=== PATIENT | male | born 1965 | race Caucasian/White ===

== ENCOUNTER 2017-11-30 11:07 | Inpatient (IN) ==
[2017-11-30] MEDS ORDERED: Aspirin 81 MG TAB.CHEW PO ONE (11:45)
[2017-11-30 12:30] LABS: Basophils # 0.1 K/mcL (0.0-0.2); Basophils % 0.8 %; Eosinophils # 0.2 K/mcL (0.0-0.6); Eosinophils % 3.1 %; Hematocrit 39.3 % (37.5-50.1); Hemoglobin 13.7 g/dL (12.9-16.9); Immature Granulocytes % 0.3 % (0-4); Lymphocytes # 1.1 K/mcL (0.6-4.6); Lymphocytes % 17.2 %; Mean Corpuscular HGB Conc 34.9 g/dL (31.6-35.5); Mean Corpuscular Hemoglobin 30.8 pg (28.0-33.3); Mean Corpuscular Volume 88.3 fL (83.0-100.0); Mean Platelet Volume 9.1 fL (9.4-12.4); Monocytes # 0.4 K/mcL (0.0-1.3); Monocytes % 7.2 %; Neutrophils # 4.3 K/mcL (1.6-8.9); Platelet Count 259 K/mcL (140-400); Red Blood Count 4.45 M/mcL (4.19-5.50); Red Cell Distribution Width 12.8 % (11.5-14.5); Segmented Neutrophils % 71.4 %
[2017-11-30 12:55] LABS: Bilirubin,Urine Negative (Negative); Blood,Urine Negative (Negative); Color,Urine Yellow (Yellow); Glucose,Urine (UA) Normal (Normal); Ketones,Urine Negative (Negative); Leukocyte Esterase,Urine Negative (Negative); Nitrite,Urine Negative (Negative); Protein,Urine Negative (Neg-Trace); Specific Gravity,Urine 1.021 (1.010-1.025); Urobilinogen,Urine Normal (Normal)
[2017-11-30 12:55] LABS: Troponin I < 0.03 ng/mL (< 0.04)
[2017-11-30 12:59] LABS: Bacteria,Urine None Seen per hpf (None-Few); Hyaline Casts,Urine None Seen per lpf (None-Few); Squamous Epithelial Cell,Urine Few per lpf (None-Few); WBC,Urine 0-3 per hpf (0-3)
[2017-11-30 13:00] LABS: Clarity,Urine Cloudy (Clear)
[2017-11-30 13:08] LABS: Thyroid Stimulating Hormone 1.098 mcIU/mL (0.340-5.600)
--- NOTE | 2017-11-30 13:09 | Emergency Department Note ---
Disposition Clinical Impression: Suicidal ideation Chest pain Qualifiers: Chest pain type: unspecified Qualified Code(s): R07.9 - Chest pain, unspecified Disposition: Still a Patient Referrals: Ronan Clark MD [Primary Care Provider] - General Adult HPI - General Chief complaint: ED Psychiatric Symptoms Stated complaint: mulitple complaints Time Seen by Provider: 11/30/17 11:23 Source: patient Limitations: no limitations - History of Present Illness Pain Scale: 0 - Related Data Home Medications Medication Instructions Recorded Confirmed Klonopin 03/19/15 05/15/15 Lexapro 03/19/15 05/15/15 Wellbutrin 05/15/15 05/15/15 Previous Rx's Medication Instructions Recorded Azithromycin [Zithromax] 250 mg PO DAILY #6 tablet 05/15/15 Loratadine [Claritin] 10 mg PO DAILY #30 tablet 06/20/15 Amoxicillin/Clavulanate [Augmentin] 875 mg PO BIDWM #20 tablet 11/20/15 Benzonatate [Tessalon] 200 mg PO TID PRN #30 capsule 11/20/15 Guaifenesin/Pseudoephedrne HCl 1 each PO BID #20 tab.er.12h 11/20/15 [Mucinex D ER 1,200-120 mg Tab] Loratadine [Claritin] 10 mg PO DAILY #30 tablet 11/20/15 Cyclobenzaprine HCl 5 mg PO TID PRN #30 tablet 11/09/16 predniSONE [Prednisone] 40 mg PO DAILY #10 tablet 11/09/16 Allergies Allergy/AdvReac Type Severity Reaction Status Date / Time ciprofloxacin [From Cipro] Allergy Rash Verified 03/19/15 20:50 Past Medical History - Past Medical History Medical history: Reports: COPD, other Surgical history: Reports: other (left knee surgery) Psychiatric history: Reports: anxiety, bipolar, depression, other - Social History Smoking Status: Never smoker Smokeless Tobacco Status: No Alcohol use: Reports: none Drug use: Reports: none Physical Exam - General Limitations: no limitations General appearance: alert, in no apparent distress, anxious Course Vital Signs Temperature 97.7 F 11/30/17 11:09 Pulse Rate 73 11/30/17 11:09 Respiratory Rate 18 11/30/17 11:09 Blood Pressure 136/87 11/30/17 11:09 O2 Sat by Pulse Oximetry 97 05/17/18 11:09 Temperature 97.7 F 11/30/17 11:40 Pulse Rate 73 11/30/17 11:40 Respiratory Rate 18 11/30/17 11:40 Blood Pressure 136/87 11/30/17 11:40 O2 Sat by Pulse Oximetry 97 11/30/17 11:40 Oxygen Delivery Oxygen Delivery Room Air Medical Decision Making - Lab Data Result diagrams: 11/30/17 12:03 Lab Results 11/30/17 11/30/17 11/30/17 Range/Units 12:03 12:03 12:03 WBC 6.1 (4.3-11.1) K/mcL RBC 4.45 (4.19-5.50) M/mcL Hgb 13.7 (12.9-16.9) g/dL Hct 39.3 (37.5-50.1) % MCV 88.3 (83.0-100.0) fL MCH 30.8 (28.0-33.3) pg MCHC 34.9 (31.6-35.5) g/dL RDW 12.8 (11.5-14.5) % Plt Count 259 (140-400) K/mcL MPV 9.1 L (9.4-12.4) fL Immature Gran % 0.3 (0-4) % Seg Neutrophils % 71.4 % Lymphocytes % 17.2 % Monocytes % 7.2 % Eosinophils % 3.1 % Basophils % 0.8 % Neutrophils # 4.3 (1.6-8.9) K/mcL Lymphocytes # 1.1 (0.6-4.6) K/mcL Monocytes # 0.4 (0.0-1.3) K/mcL Eosinophils # 0.2 (0.0-0.6) K/mcL Basophils # 0.1 (0.0-0.2) K/mcL Troponin I < 0.03 (< 0.04) ng/mL TSH 1.098 (0.340-5.600) mcIU/mL Urine Color (Yellow) Urine Clarity (Clear) Urine pH (5.0-8.0) pH Units Ur Specific [place] (1.010-1.025) Urine Protein (Neg-Trace) mg/dL Urine Glucose (UA) (Normal) mg/dL Urine Ketones (Negative) mg/dL Urine Blood (Negative) Urine Nitrite (Negative) Urine Bilirubin (Negative) Urine Urobilinogen (Normal) mg/dL Ur Leukocyte Esterase (Negative) Urine Microscopic RBC (0-3) per hpf Urine Microscopic WBC (0-3) per hpf Ur Squamous Epith Cells (None-Few) per lpf Urine Bacteria (None-Few) per hpf Hyaline Casts (None-Few) per lpf 11/30/17 Range/Units 12:45 WBC (4.3-11.1) K/mcL RBC (4.19-5.50) M/mcL Hgb (12.9-16.9) g/dL Hct (37.5-50.1) % MCV (83.0-100.0) fL MCH (28.0-33.3) pg MCHC (31.6-35.5) g/dL RDW (11.5-14.5) % Plt Count (140-400) K/mcL MPV (9.4-12.4) fL Immature Gran % (0-4) % Seg Neutrophils % % Lymphocytes % % Monocytes % % Eosinophils % % Basophils % % Neutrophils # (1.6-8.9) K/mcL Lymphocytes # (0.6-4.6) K/mcL Monocytes # (0.0-1.3) K/mcL Eosinophils # (0.0-0.6) K/mcL Basophils # (0.0-0.2) K/mcL Troponin I (< 0.04) ng/mL TSH (0.340-5.600) mcIU/mL Urine Color Yellow (Yellow) Urine Clarity Cloudy A (Clear) Urine pH 8.0 (5.0-8.0) pH Units Ur Specific [place] 1.021 (1.010-1.025) Urine Protein Negative (Neg-Trace) mg/dL Urine Glucose (UA) Normal (Normal) mg/dL Urine Ketones Negative (Negative) mg/dL Urine Blood Negative (Negative) Urine Nitrite Negative (Negative) Urine Bilirubin Negative (Negative) Urine Urobilinogen Normal (Normal) mg/dL Ur Leukocyte Esterase Negative (Negative) Urine Microscopic RBC 3-5 H (0-3) per hpf Urine Microscopic WBC 0-3 (0-3) per hpf Ur Squamous Epith Cells Few (None-Few) per lpf Urine Bacteria None Seen (None-Few) per hpf Hyaline Casts None Seen (None-Few) per lpf Attestation Statement - Attestation Attestation: I examined this patient and my medical decision-making was reviewed with the Resident Physician. I agree with the documented findings, disposition and treatment plan as described except to the extent set forth below. 52 year old male presnte to the ED with complaints of chest pain that has been intermittent for the past one week or so. Marcus states that it has been worsening his deprssion and anxiety and alhough he doesnt have a plan set he is suicidal. Patient states that he is chest pain free at this time although he has risk facotrs concerning for ACS. Marcus last nuclear test was 3 years ago. WE will continue with medical clearance but with likely admit to medicine for CP r/o ACS.
[2017-11-30 13:11] LABS: Acetaminophen < 10 mcg/mL (10-20); BUN/Creatinine Ratio 17 (6-26); Blood Urea Nitrogen 13 mg/dL (6-20); Calcium 9.1 mg/dL (8.6-10.3); Carbon Dioxide 26 mEq/L (23-29); Chloride 110 mEq/L (98-107); Glucose 114 mg/dL (70-105); Osmolality,Calculated 297 (280-300); Potassium 4.1 mEq/L (3.5-5.1); Sodium 143 mEq/L (136-145); eGFR For African Americans > 60 (> 60); eGFR For Non-African Americans > 60 (> 60)
[2017-11-30 13:16] LABS: Amphetamine Screen,Urine Negative ng/mL (Cutoff=1000); Barbiturate Screen,Urine Negative ng/mL (Cutoff=200); Benzodiazepines Screen,Urine Negative ng/mL (Cutoff=200); Cannabinoid Screen,Urine Negative ng/mL (Cutoff = 50); Cocaine Screen,Urine Negative ng/mL (Cutoff= 300); Opiate Screen,Urine Negative ng/mL (Cutoff=300); Phencyclidine Screen,Urine Negative ng/mL (Cutoff=25)
[2017-11-30 13:16] LABS: Ethanol < 10 mg/dL (Less than 10); Salicylate < 2.5 mg/dL (15.0-30.0)
--- NOTE | 2017-11-30 14:14 | Emergency Department Note ---
Disposition Clinical Impression: Suicidal ideation Chest pain Qualifiers: Chest pain type: unspecified Qualified Code(s): R07.9 - Chest pain, unspecified Disposition: Admitted As Inpatient Condition: Good Time of Disposition: 14:00 Psych HPI - General Chief Complaint: ED Psychiatric Symptoms Stated Complaint: mulitple complaints Time Seen by Provider: 11/30/17 11:23 Source: patient Mode of arrival: ambulatory Limitations: no limitations Nursing Notes Reviewed: Yes Vital Signs Reviewed: Yes - History of Present Illness HPI Narrative: Patient is a [id number] male who presents to [facility] ED with a chief complaint of chest pain, anxiety, suicidal ideation. States he has had worsening chest pains over the last week. States it is substernal in location but does not radiate anywhere. States he feels at times it may be worse with exertion. However he is usually at work when this happens and states that work stresses him out more. States he has chronic pain and has approached his primary care physician about possible disability, but he always gets turned down. States he is at a point where he feels like he cannot take it anymore and just feels like he wants to "end it all". He admitted to having suicidal ideation for some time now, but has not had any plan. Pt complaint: suicidal ideation, feels depressed, anxiety Onset (ago): day(s) Duration: getting worse History of similar episodes: Yes Alleged intoxication: No Associated Psychiatric Symptoms: suicidal ideation Associated symptoms: Reports: denies other symptoms Traumatic symptoms: denies traumatic injury Treatments prior to arrival: none Self harm or harm to others: admits thoughts of self harm, denies having a plan - Related Data Home Medications Medication Instructions Recorded Confirmed ARIPiprazole [Abilify] 5 mg PO DAILY 11/30/17 11/30/17 Diclofenac Sodium [Voltaren] 50 mg PO BID 11/30/17 11/30/17 Escitalopram [Lexapro] 40 mg PO DAILY 11/30/17 11/30/17 Omeprazole [PriLOSEC] 20 mg PO DAILY 11/30/17 11/30/17 clonazePAM [Klonopin] 1 - 2 mg PO BID 11/30/17 11/30/17 Allergies Allergy/AdvReac Type Severity Reaction Status Date / Time ciprofloxacin [From Cipro] Allergy Rash Verified 03/19/15 20:50 All systems ED: reviewed and negative except as stated. Past Medical History - Past Medical History Attestation: Yes The following information was validated with the patient. Source: patient Medical history: Reports: COPD, other Surgical history: Reports: other (left knee surgery) Psychiatric history: Reports: anxiety, bipolar, depression, other - Social History Smoking Status: Never smoker Smokeless Tobacco Status: No Alcohol use: Reports: none Drug use: Reports: none Physical Exam - General Limitations: no limitations General appearance: alert, in no apparent distress, anxious - Head Head exam: atraumatic, normocephalic, normal inspection - Eye Eye exam: Present: normal appearance, EOMI - ENT ENT exam: normal exam, normal oropharynx, mucous membranes moist - Neck Neck exam: Present: normal inspection, full ROM, trachea midline - Chest Chest inspection: Present: normal inspection, symmetric chest wall rise - Respiratory Respiratory exam: Present: normal lung sounds bilaterally - Cardiovascular Cardiovascular exam: Present: regular rate, normal rhythm, normal heart sounds - Abdominal Exam Abdominal exam: Present: soft, Non-Tender. Absent: tenderness, distention, guarding, rebound, rigidity - Extremities Exam Extremities exam: Present: normal inspection, full ROM. Absent: tenderness, pedal edema - Back Exam Back exam: Present: normal inspection, full ROM. Absent: tenderness - Neurological Exam Neurological exam: Present: alert, oriented X3 - Psychiatric Psychiatric exam: Present: normal affect, normal mood - Skin Skin exam: Present: warm, dry, intact, normal color Course Course Narrative: Patient seen and examined. Multiple complaints including chest pain over the last week, feeling depressed and feeling like he wants to "end it all". Denies having a plan. We will have patient moved from room over to wear a sitter can watch him. We will have psychiatry evaluate him following medical clearance. Cardiopulmonary workup was ordered along with urine analysis and urine drug screen. - Reevaluation(s) Reevaluation #1: Labwork unremarkable. Since his symptoms have been going on for several days now, I do think it is unlikely that this is cardiac in origin. We will contact psychiatry to evaluate patient. Time: 14:21 Reevaluation #2: Psychiatry evaluated the patient and decided to admit him. Time: 16:00 Vital Signs Temperature 97.7 F 11/30/17 11:09 Pulse Rate 73 11/30/17 11:09 Respiratory Rate 18 11/30/17 11:09 Blood Pressure 136/87 11/30/17 11:09 O2 Sat by Pulse Oximetry 97 11/30/17 11:09 Temperature 98.4 F 11/30/17 16:00 Pulse Rate 63 11/30/17 16:00 Respiratory Rate 16 11/30/17 16:00 Blood Pressure 125/79 11/30/17 16:00 O2 Sat by Pulse Oximetry 98 11/30/17 14:54 Oxygen Delivery Oxygen Delivery Room Air Psych - Medical Records Medical records reviewed: Yes I reviewed the patient's medical records. - Lab Data Lab results reviewed: Yes I reviewed the patient's lab results. Result diagrams: 11/30/17 12:03 11/30/17 12:03 Lab Results 11/30/17 11/30/17 11/30/17 Range/Units 12:03 12:03 12:03 WBC 6.1 (4.3-11.1) K/mcL RBC 4.45 (4.19-5.50) M/mcL Hgb 13.7 (12.9-16.9) g/dL Hct 39.3 (37.5-50.1) % MCV 88.3 (83.0-100.0) fL MCH 30.8 (28.0-33.3) pg MCHC 34.9 (31.6-35.5) g/dL RDW 12.8 (11.5-14.5) % Plt Count 259 (140-400) K/mcL MPV 9.1 L (9.4-12.4) fL Immature Gran % 0.3 (0-4) % Seg Neutrophils % 71.4 % Lymphocytes % 17.2 % Monocytes % 7.2 % Eosinophils % 3.1 % Basophils % 0.8 % Neutrophils # 4.3 (1.6-8.9) K/mcL Lymphocytes # 1.1 (0.6-4.6) K/mcL Monocytes # 0.4 (0.0-1.3) K/mcL Eosinophils # 0.2 (0.0-0.6) K/mcL Basophils # 0.1 (0.0-0.2) K/mcL Sodium 143 (136-145) mEq/L Potassium 4.1 (3.5-5.1) mEq/L Chloride 110 H (98-107) mEq/L Carbon Dioxide 26 (23-29) mEq/L BUN 13 (6-20) mg/dL Creatinine 0.75 (0.70-1.30) mg/dL Est GFR ( Amer) > 60 (> 60) Est GFR (Non-Af Amer) > 60 (> 60) BUN/Creatinine Ratio 17 (6-26) Glucose 114 H (70-105) mg/dL Calculated Osmolality 297 (280-300) Calcium 9.1 (8.6-10.3) mg/dL Troponin I < 0.03 (< 0.04) ng/mL TSH 1.098 (0.340-5.600) mcIU/mL Urine Color (Yellow) Urine Clarity (Clear) Urine pH (5.0-8.0) pH Units Ur Specific [place] (1.010-1.025) Urine Protein (Neg-Trace) mg/dL Urine Glucose (UA) (Normal) mg/dL Urine Ketones (Negative) mg/dL Urine Blood (Negative) Urine Nitrite (Negative) Urine Bilirubin (Negative) Urine Urobilinogen (Normal) mg/dL Ur Leukocyte Esterase (Negative) Urine Microscopic RBC (0-3) per hpf Urine Microscopic WBC (0-3) per hpf Ur Squamous Epith Cells (None-Few) per lpf Urine Bacteria (None-Few) per hpf Hyaline Casts (None-Few) per lpf Salicylates < 2.5 L (15.0-30.0) mg/dL Urine Opiates Screen (Tnsiod=993) ng/mL Acetaminophen < 10 L (10-20) mcg/mL Ur Barbiturates Screen (Cbphup=148) ng/mL Ur Phencyclidine Scrn (Cutoff=25) ng/mL Ur Amphetamines Screen (Xltkpl=1895) ng/mL U Benzodiazepines Scrn ([place]=131) ng/mL Urine Cocaine Screen (Cutoff= 300) ng/mL U Marijuana (THC) Screen (Cutoff = 50) ng/mL Ethyl Alcohol < 10 (Less than 10) mg/dL 11/30/17 11/30/17 Range/Units 12:45 12:45 WBC (4.3-11.1) K/mcL RBC (4.19-5.50) M/mcL Hgb (12.9-16.9) g/dL Hct (37.5-50.1) % MCV (83.0-100.0) fL MCH (28.0-33.3) pg MCHC (31.6-35.5) g/dL RDW (11.5-14.5) % Plt Count (140-400) K/mcL MPV (9.4-12.4) fL Immature Gran % (0-4) % Seg Neutrophils % % Lymphocytes % % Monocytes % % Eosinophils % % Basophils % % Neutrophils # (1.6-8.9) K/mcL Lymphocytes # (0.6-4.6) K/mcL Monocytes # (0.0-1.3) K/mcL Eosinophils # (0.0-0.6) K/mcL Basophils # (0.0-0.2) K/mcL Sodium (136-145) mEq/L Potassium (3.5-5.1) mEq/L Chloride (98-107) mEq/L Carbon Dioxide (23-29) mEq/L BUN (6-20) mg/dL Creatinine (0.70-1.30) mg/dL Est GFR ( Amer) (> 60) Est GFR (Non-Af Amer) (> 60) BUN/Creatinine Ratio (6-26) Glucose (70-105) mg/dL Calculated Osmolality (280-300) Calcium (8.6-10.3) mg/dL Troponin I (< 0.04) ng/mL TSH (0.340-5.600) mcIU/mL Urine Color Yellow (Yellow) Urine Clarity Cloudy A (Clear) Urine pH 8.0 (5.0-8.0) pH Units Ur Specific [place] 1.021 (1.010-1.025) Urine Protein Negative (Neg-Trace) mg/dL Urine Glucose (UA) Normal (Normal) mg/dL Urine Ketones Negative (Negative) mg/dL Urine Blood Negative (Negative) Urine Nitrite Negative (Negative) Urine Bilirubin Negative (Negative) Urine Urobilinogen Normal (Normal) mg/dL Ur Leukocyte Esterase Negative (Negative) Urine Microscopic RBC 3-5 H (0-3) per hpf Urine Microscopic WBC 0-3 (0-3) per hpf Ur Squamous Epith Cells Few (None-Few) per lpf Urine Bacteria None Seen (None-Few) per hpf Hyaline Casts None Seen (None-Few) per lpf Salicylates (15.0-30.0) mg/dL Urine Opiates Screen Negative (Wrvhnj=235) ng/mL Acetaminophen (10-20) mcg/mL Ur Barbiturates Screen Negative (Wmcdet=619) ng/mL Ur Phencyclidine Scrn Negative (Cutoff=25) ng/mL Ur Amphetamines Screen Negative (Ddfnba=0435) ng/mL U Benzodiazepines Scrn Negative (Ilnlut=906) ng/mL Urine Cocaine Screen Negative (Cutoff= 300) ng/mL U Marijuana (THC) Screen Negative (Cutoff = 50) ng/mL Ethyl Alcohol (Less than 10) mg/dL - Radiology Data Radiology results reviewed: Yes I reviewed the patient's radiology results. Chest X-Ray 11/30/17 11:45 IMPRESSION: No acute process. D/ / Jeffry iDaz MD / Jeffry Diaz MD Interpreting Provider: Jeffry Diaz MD - EKG Data EKG attestation: Yes I reviewed and interpreted this EKG. EKG results narrative: EKG done at 1154 shows sinus bradycardia with a rate of [address] elevation or depression noted. Left axis deviation. Psychiatric Medical Clearance - Medical Clearance Checklist Does the patient have a NEW psychiatric condition?: No Any abnormalities indicating possible medical illness?: No Any history of medical issues?: Yes Medical History: No Social History Section defined Any abnormal vital signs prior to transfer?: No Current Vitals: Last Vital Signs Temp 98.4 F 11/30/17 16:00 Pulse 63 11/30/17 16:00 Resp 16 11/30/17 16:00 BP 125/79 11/30/17 16:00 Pulse Ox 98 11/30/17 14:54 Is the patient intoxicated or cognitively impaired?: No Psychiatric Lab Panel: Drug Levels and Toxicity 11/30/17 11/30/17 12:03 12:45 Urine Opiates Screen Negative Acetaminophen < 10 L Ur Barbiturates Screen Negative Ur Phencyclidine Scrn Negative Ur Amphetamines Screen Negative U Benzodiazepines Scrn Negative Urine Cocaine Screen Negative U Marijuana (THC) Screen Negative Ethyl Alcohol < 10 Any abnormalities on the physical exam?: No Any abnormal labs?: No Abnormal Labs: Abnormal lab results MPV 9.1 fL (9.4-12.4) L 11/30/17 12:03 Chloride 110 mEq/L (98-107) H 11/30/17 12:03 Glucose 114 mg/dL (70-105) H 11/30/17 12:03 Urine Clarity Cloudy (Clear) A 11/30/17 12:45 Urine Microscopic RBC 3-5 per hpf (0-3) H 11/30/17 12:45 Salicylates < 2.5 mg/dL (15.0-30.0) L 11/30/17 12:03 Acetaminophen < 10 mcg/mL (10-20) L 11/30/17 12:03 Does the patient require durable medical equiptment?: No Is the patient ambulatory?: Yes Is the patient a fall risk?: No Has the patient been medically cleared?: Yes Any acute medical condition require Tx prior to transfer?: No Statement of Medical Clearance: I have evaluated the patient, reviewed diagnostic information, and certify that the patient's medical condition is sufficiently stable that transfer to the psychiatric unit does not pose a significant risk of deterioration.
[2017-11-30] MEDS ORDERED: Haloperidol Lactate 5 MG/ML VIAL IM PRN (15:46)
[2017-11-30] MEDS ORDERED: *HR* LORazepam 1 MG TABLET PO PRN (15:46)
[2017-11-30] MEDS ORDERED: hydrOXYzine pamoate 25 MG CAPSULE PO PRN (15:46)
[2017-11-30] MEDS ORDERED: *HR* LORazepam 2 MG/ML VIAL IM PRN (15:46)
[2017-11-30] MEDS ORDERED: Mag Hydrox/Al Hydrox/Simeth 30 ML UDC PO PRN (15:46)
[2017-11-30] MEDS ORDERED: MOM Conc 10 ML UD.LIQ PO PRN (15:46)
[2017-11-30] MEDS ORDERED: ARIPiprazole 5 MG TABLET PO ONE (16:15)
[2017-11-30] MEDS: clonazePAM 1 MG TABLET PO SCH ×2 (16:24→20:39)
[2017-11-30] MEDS: traZODone 50 MG TABLET PO PRN (20:39)
[2017-12-01] MEDS: clonazePAM 1 MG TABLET PO SCH ×4 (09:56→21:08)
[2017-12-01] MEDS: ARIPiprazole 10 MG TABLET PO SCH (09:58)
[2017-12-01 14:39] LABS: Basophils # 0.1 K/mcL (0.0-0.2); Basophils % 1.1 %; Eosinophils # 0.6 K/mcL (0.0-0.6); Eosinophils % 10.3 %; Hemoglobin 13.9 g/dL (12.9-16.9); Immature Granulocytes % 0.2 % (0-4); Immature Platelets 1.8 % (1.1-6.1); Lymphocytes # 1.2 K/mcL (0.6-4.6); Lymphocytes % 20.4 %; Mean Corpuscular HGB Conc 34.8 g/dL (31.6-35.5); Mean Corpuscular Hemoglobin 31.5 pg (28.0-33.3); Mean Corpuscular Volume 90.7 fL (83.0-100.0); Monocytes # 0.6 K/mcL (0.0-1.3); Monocytes % 10.3 %; Neutrophils # 3.3 K/mcL (1.6-8.9); Nucleated Red Blood Cells 0.4 /100 WBC (0); Platelet Count 281 K/mcL (140-400); Red Blood Count 4.41 M/mcL (4.19-5.50); Segmented Neutrophils % 57.7 %
[2017-12-01 15:04] LABS: Alanine Aminotransferase 15 Units/L (7-52); Albumin 4.1 g/dL (3.5-5.7); Albumin/Globulin Ratio 1.6 (1.1-2.2); Alkaline Phosphatase 47 Units/L (34-104); Aspartate Amino Transferase 16 Units/L (13-39); BUN/Creatinine Ratio 18 (6-26); Bilirubin,Total 0.4 mg/dL (0.3-1.0); Blood Urea Nitrogen 15 mg/dL (6-20); Calcium 9.1 mg/dL (8.6-10.3); Carbon Dioxide 31 mEq/L (23-29); Chloride 109 mEq/L (98-107); Globulin 2.5 g/dL (2.4-3.5); Glucose 85 mg/dL (70-105); Osmolality,Calculated 296 (280-300); Potassium 4.4 mEq/L (3.5-5.1); Sodium 143 mEq/L (136-145); Total Protein 6.6 g/dL (6.4-8.9); eGFR For African Americans > 60 (> 60); eGFR For Non-African Americans > 60 (> 60)
--- NOTE | 2017-12-01 18:08 | Psychiatry History & Physical ---
Date of Encounter: 12/01/17 Time of Encounter: 17:30 History of Present Illness Patient Stated Chief Complaint: I just cant take the stresses in my life right now Medicare Admission Attestation: For traditional Medicare patients the provided hospital inpatient services are reasonable and necessary and in the case of services not specified as inpatient -only under 42 CFR 419.22 (n), that they are appropriately provided as inpatient services in accordance 42 CFR 412.3. For Critical Access Hospital the patient may reasonably be expected to be discharged or transferred to a hospital within 96 hours after admission to the Critical Access Hospital. Admitted From: Emergency Dept Plans for Post Hospital Care: Home History of Present Illness: Mr. Patton is a 52 year old male Pt is a 52 yo ,, male, marriedx2, x1 with 5 children (28-14) who presents for depression and anxiety . Pt noted he currently lives in [facility] with his and 4 youngest children. Pt noted recent exacerbation of depression. Pt states he is at a point where he feels like he could not take it anymore and just feels like he wants to "end it all". He admitted to having suicidal ideation for some time now, but has not had any plan. PT noted he that his SI has resolved. Pt denied any side effects to current medications. Pt noted he felt safe and comfortable on the unit. Pt was in agreement with current treatment plan. Pt noted that he is doing alright today. Pt noted he slept not that much last night. Pt noted his appetite is good. Pt rated his depression a 3, on a scale of zero to ten with ten being the worst and zero being none. Pt rate his anxiety a 1, on the same scale. Pt denied any auditory or visual hallucinations. Pt denied any current thoughts to harm himself or anyone else. Pt noted that his mother is alive in an assisted living facility and his father passed from old age. Pt noted that his highest level of education is [employer]. Pt noted he is currently employed at [employer]. Pt denied any inpt psychiatric hospitalizations. Pt denied any previous suicide attemptes. Pt denied any family hx of suicides. PT denied any family mental health hx. No TD noted, AIMS=0 Pt denied any hx of hep C, HIV, Seizures or TBI's MSE: Alert and Oriented x3 Appearance: appropriately groomed dressed in civilian attire Behavior: Polite, friendly, courteous Speech: fluent, normal tone, normal rate Mood: better but I am depression Affect: mood congruent Thought content: no HI noted, no SI noted, no delusions noted Psychosis: none noted, currently does not appear to be responding to internal stimuli. Thought Process: linear logical, goal directed Judgment: fair. Insight: fair. Assessment/Plan 1.Interval hx 2.Continue current medications 3.Review current labs 4.Pt had an opportunity to ask questions and discuss current treatment plan. 5.Supportive therapy was provided 6.Pt encouraged to consider group or individual therapy 7.Pt was in agreement with treatment plan. 8.Pt was educated on the risks benefits and side effects of current medications. Past Med Surg Social Fam HX - Past Medical History Medical history: COPD, other - Past Psychiatric History Psychiatric history: Reports: anxiety, depression Family psychiatric history: Unknown Family History of Suicide: Unknown - Past Surgical History Surgical History: other (left knee surgery) - Social History Smoking Status: Never smoker Smokeless Tobacco Status: No Alcohol use: none Drug use: none Medications & Allergies ARIPiprazole [Abilify] 5 mg PO DAILY 11/30/17 [History] Diclofenac Sodium [Voltaren] 50 mg PO BID 11/30/17 [History] Escitalopram [Lexapro] 40 mg PO DAILY 11/30/17 [History] Omeprazole [PriLOSEC] 20 mg PO DAILY 11/30/17 [History] clonazePAM [Klonopin] 1 - 2 mg PO BID 11/30/17 [History] 3 Allergy/AdvReac Type Severity Reaction Status Date / Time ciprofloxacin [From Cipro] Allergy Rash Verified 03/19/15 20:50 Review of Systems Constitutional: Denies: fever, chills, weakness, weight change Eyes: Denies: eye pain, vision change Ears, Nose, Throat: Denies: ear pain, throat pain, dental pain, hearing loss, congestion Cardiovascular: Denies: chest pain, palpitations, dyspnea on exertion Respiratory: Denies: cough, dyspnea, wheezes Gastrointestinal: Denies: abdominal pain, nausea, vomiting, diarrhea, constipation Genitourinary male: Denies: urgency, dysuria, frequency, genital lesions Musculoskeletal: Denies: joint swelling, joint pain Integumentary: Denies: rash, lesions, pruritus Neurological: Denies: headache, weakness, numbness, memory loss Psychiatric: Reports: depression, anxiety, anhedonia Endocrine: Denies: fatigue, heat or cold intolerance Hematologic/Lymphatic: Denies: easy bruising, lymphadenopathy Allergic/Immunologic: Denies: urticaria, itchy eyes Exam - HEENT Head exam IM: Present: atraumatic Eye exam IM: Present: EOMI, normal appearance, PERRL ENT exam IM: Present: normal exam - Neurological Neurological exam: Present: CN II-XII intact - Respiratory Respiratory exam IM: Present: CTAB - GI/Abdominal GI/Abdominal exam IM: Present: normal bowel sounds, soft. Absent: tenderness - Extremities Extremities exam IM: Present: full ROM - Skin Skin exam IM: Present: dry, warm - Constitutional Vitals: Temp Pulse Resp BP Pulse Ox 98 F 55 16 134/79 98 12/01/17 09:00 12/01/17 13:15 12/01/17 13:15 12/01/17 13:15 11/30/17 14:54 General appearance: age & developmentally appropriate, well-groomed, well- nourished - Musculoskeletal Gait: normal Station: relaxed Strength & Tone: normal for patient - Psychiatric Patient Orientation: Yes Person, Yes Time, Yes Place Level of alertness: Alert Behavior: calm, cooperative Psychomotor activity: Normal Eye Contact: Maintains Eye Contact Mood Description: Euthymic/stable Affect description: congruent with mood, full range Speech Volume: Normal Speech pattern: normal rate, normal rhythm, normal tone, fluent, spontaneous Language & Vocabulary: consistent with education Thought Process: Logical, Linear, Goal Oriented Thought Content: Yes Intact, No Suicidal ideation, No Homicidal ideation, No Overt delusions Perceptual Disturbances: No Auditory hallucinations, No Visual hallucinations Attention Span Ability: Capable of Focused Attention Memory Description: Grossly Intact Patient Reliability: Reliable Historian Fund of knowledge: Yes abstraction ability, Yes average, Yes aware of current events Intelligence Estimate: Average Judgment: Fair Insight: Partial Results - Labs Labs: Laboratory Last Values WBC 5.7 K/mcL (4.3-11.1) 12/01/17 14:26 RBC 4.41 M/mcL (4.19-5.50) 12/01/17 14:26 Hgb 13.9 g/dL (12.9-16.9) 12/01/17 14:26 Hct 40.0 % (37.5-50.1) 12/01/17 14: MCV 90.7 fL (83.0-100.0) 12/01/17 14: MCH 31.5 pg (28.0-33.3) 12/01/17 14: MCHC 34.8 g/dL (31.6-35.5) 12/01/17 14: RDW 13.0 % (11.5-14.5) 12/01/17 14: Plt Count 281 K/mcL (140-400) 12/01/17 14: MPV 9.0 fL (9.4-12.4) L 12/01/17 14: Immature Gran % 0.2 % (0-4) 12/01/17 14: Seg Neutrophils % 57.7 % 12/01/17 14: Lymphocytes % 20.4 % 12/01/17 14: Monocytes % 10.3 % 12/01/17 14: Eosinophils % 10.3 % 12/01/17 14: Basophils % 1.1 % 12/01/17 14: Neutrophils # 3.3 K/mcL (1.6-8.9) 12/01/17 14: Lymphocytes # 1.2 K/mcL (0.6-4.6) 12/01/17 14: Monocytes # 0.6 K/mcL (0.0-1.3) 12/01/17 14: Eosinophils # 0.6 K/mcL (0.0-0.6) 12/01/17 14: Basophils # 0.1 K/mcL (0.0-0.2) 12/01/17 14:26 Nucleated RBCs/100 WBC 0.4 /100 WBC (0) H 12/01/17 14:26 Immature Plt Fraction 1.8 % (1.1-6.1) 12/01/17 14:26 Sodium 143 mEq/L (136-145) 12/01/17 14: Potassium 4.4 mEq/L (3.5-5.1) 12/01/17 14: Chloride 109 mEq/L (98-107) H 12/01/17 14:26 Carbon Dioxide 31 mEq/L (23-29) H 12/01/17 14:26 BUN 15 mg/dL (6-20) 12/01/17 14:26 Creatinine 0.84 mg/dL (0.70-1.30) 12/01/17 14:26 Est GFR ( Amer) > 60 (> 60) 12/01/17 14:26 Est GFR (Non-Af Amer) > 60 (> 60) 12/01/17 14:26 BUN/Creatinine Ratio 18 (6-26) 12/01/17 14:26 Glucose 85 mg/dL (70-105) 12/01/17 14:26 Calculated Osmolality 296 (280-300) 12/01/17 14:26 Calcium 9.1 mg/dL (8.6-10.3) 12/01/17 14:26 Magnesium 2.2 mg/dL (1.6-2.6) 12/01/17 14:26 Total Bilirubin 0.4 mg/dL (0.3-1.0) 12/01/17 14:26 AST 16 Units/L (13-39) 12/01/17 14:26 ALT 15 Units/L (7-52) 12/01/17 14:26 Alkaline Phosphatase 47 Units/L (34-104) 12/01/17 14:26 Troponin I < 0.03 ng/mL (< 0.04) 11/30/17 12:03 Serum Total Protein 6.6 g/dL (6.4-8.9) 12/01/17 14:26 Albumin 4.1 g/dL (3.5-5.7) 12/01/17 14:26 Globulin 2.5 g/dL (2.4-3.5) 12/01/17 14:26 Albumin/Globulin Ratio 1.6 (1.1-2.2) 12/01/17 14:26 Vitamin B12 707 pg/mL (250-1100) 12/01/17 14:26 Folate > 22.3 ng/mL (3.0-16.0) H 12/01/17 14:26 TSH 0.784 mcIU/mL (0.340-5.600) 12/01/17 14:26 Urine Color Yellow (Yellow) 11/30/17 12:45 Urine Clarity Cloudy (Clear) A 11/30/17 12:45 Urine pH 8.0 pH Units (5.0-8.0) 11/30/17 12:45 Ur Specific [place] 1.021 (1.010-1.025) 11/30/17 12:45 Urine Protein Negative mg/dL (Neg-Trace) 11/30/17 12:45 Urine Glucose (UA) Normal mg/dL (Normal) 11/30/17 12:45 Urine Ketones Negative mg/dL (Negative) 11/30/17 12:45 Urine Blood Negative (Negative) 11/30/17 12:45 Urine Nitrite Negative (Negative) 11/30/17 12:45 Urine Bilirubin Negative (Negative) 11/30/17 12:45 Urine Urobilinogen Normal mg/dL (Normal) 11/30/17 12:45 Ur Leukocyte Esterase Negative (Negative) 11/30/17 12:45 Urine Microscopic RBC 3-5 per hpf (0-3) H 11/30/17 12:45 Urine Microscopic WBC 0-3 per hpf (0-3) 11/30/17 12:45 Ur Squamous Epith Cells Few per lpf (None-Few) 11/30/17 12:45 Urine Bacteria None Seen per hpf (None-Few) 11/30/17 12:45 Hyaline Casts None Seen per lpf (None-Few) 11/30/17 12:45 Salicylates < 2.5 mg/dL (15.0-30.0) L 11/30/17 12:03 Urine Opiates Screen Negative ng/mL (Kobmbm=321) 11/30/17 12:45 Acetaminophen < 10 mcg/mL (10-20) L 11/30/17 12:03 Ur Barbiturates Screen Negative ng/mL (Xoprlv=129) 11/30/17 12:45 Ur Phencyclidine Scrn Negative ng/mL (Cutoff=25) 11/30/17 12:45 Ur Amphetamines Screen Negative ng/mL (Zgqxuc=8645) 11/30/17 12:45 U Benzodiazepines Scrn Negative ng/mL (Zwrvxy=702) 11/30/17 12:45 Urine Cocaine Screen Negative ng/mL (Cutoff= 300) 11/30/17 12:45 U Marijuana (THC) Screen Negative ng/mL (Cutoff = 50) 11/30/17 12:45 Ethyl Alcohol < 10 mg/dL (Less than 10) 11/30/17 12:03 Assessment and Plan (1) Bipolar 1 disorder, depressed Current visit: Yes Status: Acute Plan: Admit inpatient for safety and stabilization Risks, benefits, side effects, alternatives discussed w/pt: Yes Patient agreeable to treatment: Yes Plans for Post Hospital Care: Home (2) Anxiety Current visit: Yes Status: Acute Plan: Admit inpatient for safety and stabilization Risks, benefits, side effects, alternatives discussed w/pt: Yes Patient agreeable to treatment: Yes Plans for Post Hospital Care: Home (3) Suicidal ideation Current visit: Yes Status: Acute Plan: Admit inpatient for safety and stabilization Risks, benefits, side effects, alternatives discussed w/pt: Yes Patient agreeable to treatment: Yes Plans for Post Hospital Care: Home
[2017-12-01] MEDS: traZODone 50 MG TABLET PO PRN (21:08)
--- NOTE | 2017-12-01 23:20 | Electrocardiograph Report ---
[place] [id number] Test Date: 2017-11-30 Pat Name: Venancio Patton Department: 103 Room: 1A42 Gender: M [employer]: EDIN : 1965 Requested By: Yoko Meza Order Number: [id number] Reading MD: Justa Ndiaye Measurements Intervals [place] Rate: 48 P: 61 IN: 154 QRS: -20 QRSD: 94 T: 66 QT: 433 QTc: 399 Interpretive Statements SINUS BRADYCARDIA MINIMAL ST DEPRESSION [0.025+ mV ST DEPRESSION] Electronically Signed On 12-01-2017 23:18:59 EDT by Justa Ndiaye
[2017-12-02] MEDS: ARIPiprazole 10 MG TABLET PO SCH (09:00)
[2017-12-02] MEDS: clonazePAM 1 MG TABLET PO SCH ×4 (09:00→21:14)
--- NOTE | 2017-12-02 16:09 | Psychiatry Progress Note ---
Date of Encounter: 12/02/17 Time of Encounter: 14:00 Subjective Interval history: Patient with is a 52y/o male, , lives with family with a h/o depression and anxiety admitted to the unit for suicidal ideation in the setting of ongoing stressors. Patient seen on rounds this morning by a multidisciplinary treatment team. There were reported behavioral issues or incident overnight. Patient was calm, cooperative and well related on presentation. He stated recent worsening anxiety symptoms and depressive symptom with passive suicidal ideations. He denied prior suicide attempts and stated he can never see himself do that because of his kids. He endorsed ongoing stressors from both home and work and could no longer handle it. Patient has been on lexopro for years and may be developing tolerance to its effect. He agreed to cross titrate with a different medication. On review of symptoms, he denied any mood or psychotic symptoms inluding Ah/VH/SI/HI. Patient also admitted to noncompliance with his Abilify prior to this hospitalization. I will cross titrate lexapro with Effexor by decreasing dose of lexapro to 20mg and start Effexor ER 37/5mg daily. The risk, complications and side effects of Effexor explained to patient and he verbalized adequate understanding. Review of Systems Constitutional: Denies: fever, chills, weakness, weight change Eyes: Denies: eye pain, vision change Ears, Nose, Throat: Denies: ear pain, throat pain, dental pain, hearing loss, congestion Cardiovascular: Denies: chest pain, palpitations, dyspnea on exertion Respiratory: Denies: cough, dyspnea, wheezes Gastrointestinal: Denies: abdominal pain, nausea, vomiting, diarrhea, constipation Musculoskeletal: Denies: joint swelling, joint pain Neurological: Denies: headache, weakness, numbness, memory loss Psychiatric: Reports: depression, anxiety, anhedonia Results - Vital Signs Vital Signs: Temp Pulse Resp BP Pulse Ox 97.9 F 64 19 115/75 98 12/02/17 09:00 12/02/17 09:00 12/02/17 09:00 12/02/17 09:00 11/30/17 14:54 Assessment and Plan (1) Suicidal ideation Current visit: Yes Status: Acute Plan: Continue hospitalization Risks, benefits, side effects, alternatives discussed w/pt: Yes Patient agreeable to treatment: Yes (2) Bipolar 1 disorder, depressed Current visit: Yes Status: Acute Plan: Continue hospitalization Risks, benefits, side effects, alternatives discussed w/pt: Yes Patient agreeable to treatment: Yes (3) Anxiety Current visit: Yes Status: Acute Plan: Continue hospitalization Risks, benefits, side effects, alternatives discussed w/pt: Yes Patient agreeable to treatment: Yes Consult Discharge Plan - Plan Referrals: [facility] [Outside] - 12/13/17 2:00 pm (The above appointment is with [facility] for outpatient counseling services. You will also see Dr. Alexander on 12/26/2017 at 4:00pm for outpatient psychiatric assessment and medication management services.) Psychiatry Exam - Constitutional Vitals: Temp Pulse Resp BP Pulse Ox 97.9 F 64 19 115/75 98 12/02/17 09:00 12/02/17 09:00 12/02/17 09:00 12/02/17 09:00 11/30/17 14:54 General appearance: age & developmentally appropriate - Musculoskeletal Gait: normal Station: relaxed Strength & Tone: normal for patient - Psychiatric Patient Orientation: Yes Person, Yes Time, Yes Place Level of alertness: Alert Behavior: calm, cooperative Psychomotor activity: Normal Eye Contact: Maintains Eye Contact Mood Description: Depressed Affect description: congruent with mood Speech Volume: Normal Speech pattern: normal rate, normal rhythm, normal tone, fluent, spontaneous Language & Vocabulary: consistent with education Thought Process: Logical, Goal Oriented Thought Content: Yes Suicidal ideation Perceptual Disturbances: No Auditory hallucinations, No Visual hallucinations Attention Span Ability: Capable of Focused Attention Memory Description: Grossly Intact Patient Reliability: Reliable Historian Fund of knowledge: Yes average Intelligence Estimate: Average Judgment: Limited Insight: Minimal
[2017-12-02] MEDS: traZODone 50 MG TABLET PO PRN (21:14)
[2017-12-02] MEDS: Acetaminophen 325 MG TABLET PO PRN (21:45)
--- NOTE | 2017-12-03 00:54 | Internal Medicine Consult Note ---
Date of Encounter: 12/03/17 Time of Encounter: 00:52 - Assessment and plan (1) Chest pain Current Visit: Yes Status: Acute Assessment and plan: The patient's chest pain resolved on its own. EKG is unchanged from previously although his ST depressions a little bit more prominent. He is hemodynamically stable. We will check troponins every 6 hours 3. Given his previous stress test results and the current chest pain with ST depressions, I will check an echocardiogram. Check A1c and lipid panel. I suspect the patient's chest pain is likely secondary to anxiety. Qualifiers: Chest pain type: unspecified Qualified Code(s): R07.9 - Chest pain, unspecified (2) Suicidal ideation Current Visit: Yes Status: Acute Assessment and plan: Management per the primary team. (3) Anxiety Current Visit: Yes Status: Acute Assessment and plan: Patient is to receive 0.5 mg of Ativan per recommendations from the psychiatrist was called by the psych unit. Continue with rest of psych meds per the primary team. - Time Spent With Patient Total time spent is greater than 50% in coordination of care (as documented) at patient's floor/unit and/or counseling patient: Internal Medicine - CN: HPI - Data of Consult Patient: new to practice Consult date: 12/03/17 Requesting Physician: Howie Collins - Consult Narrative Reason for consult: chest pain History of present illness: Mr. Patton is a 52 year old male history of depression, anxiety, suicidal ideations, GERD who is admitted under the psych service for increased anxiety and suicidal ideations. The patient was doing well and working with a psychiatrist however tonight he experienced sudden onset of left-sided chest pain that radiated to the left arm and up to his left jaw. He made his way to nursing station in the psych unit and psychiatrist was called and asked us to evaluate the patient. The patient tells me that his chest pain lasted about 5 minutes and it resolved on its own. He denies any diaphoresis or shortness of breath. He tells me before the episode started he started feeling "butterflies " in his stomach and then the chest pain suddenly started. Was about 4 out of 10 in intensity. He tells me that about 2 years ago he had a stress test done and according to the floor was a negative stress test however they did mention a small sized mild intensity perfusion defect in the apex during the stress and which is mild ischemia could not be ruled out. There was also a comment about possible GI artifact obstructing the inferior wall. He tells me that he did follow-up with a continuous improvement engineer and it was deemed that was mostly GI related. He never followed up with anybody after that. He has a smoking history but has not smoked since 2009. He smoked about a pack a day for about 30 years prior to that. Unknown family history as the patient is adopted. No other cardiac risk factors. The patient actually states that he has been having chest pain on and off for about 2-3 weeks for now. He complained of that to the ED and an EKG was done at that time showed sinus bradycardia with some ST depressions in multiple leads including the 2, V3, V4, V5. His troponins were not elevated on admission. When I was told about the patient I asked for another EKG to be done and this time around that showed similar findings of ST depressions in the same leads although they are more prominent in leads V2, V3, V4, V5. His EKG back from 2014 which we have on record also shows similar findings of ST depressions. The patient also seems to have sinus bradycardia since then. Denies any fever, chills, nausea, vomiting, shortness of breath, blurry vision, headache, diarrhea, constipation, abdominal pain, urinary symptoms, or neurological symptoms. Past Med Surg Social Fam HX - Past Medical History Medical history: COPD, other Psychiatric history: anxiety, depression - Past Surgical History Surgical History: other (left knee surgery) - Social History Smoking Status: Never smoker Packs per day: quit in 2009 Smokeless Tobacco Status: No Alcohol use: none Drug use: none Review of systems: All systems reviewed are negative except for as mentioned above Internal Medicine - CN: Meds ARIPiprazole [Abilify] 5 mg PO DAILY 11/30/17 [History] Diclofenac Sodium [Voltaren] 50 mg PO BID 11/30/17 [History] Escitalopram [Lexapro] 40 mg PO DAILY 11/30/17 [History] Omeprazole [PriLOSEC] 20 mg PO DAILY 11/30/17 [History] clonazePAM [Klonopin] 1 - 2 mg PO BID 11/30/17 [History] 3 Allergy/AdvReac Type Severity Reaction Status Date / Time ciprofloxacin [From Cipro] Allergy Rash Verified 03/19/15 20:50 Internal Medicine - CN: Exam - Constitutional Vitals: Temp Pulse Resp BP Pulse Ox 96.6 F L 67 16 125/75 98 12/02/17 20:18 12/02/17 20:18 12/02/17 20:18 12/02/17 20:18 11/30/17 14:54 Exam: GEN: NAD HEENT: AT, NC, No cyanosis, oral mucosa is moist, No JVD Lymphatics: No lymphadenoapthy Eyes: Extrocular muscles intact, anicteric CVS:RRR. S1, S2, No m/r/g RESP: CTAB ABD: Soft, NT, ND, +BS EXT: No edema, No rashes, 2+ DP NEURO: Nonfocal, CN II-XII intact, No focal motor or sensory deficits Psych: Cooperative, Not anxious or depressed Internal Medicine - CN: Reslt - Labs CBC & Chem 7: 12/01/17 14:26 12/01/17 14:26 Consult Discharge Plan - Plan Referrals: [facility] [Outside] - 12/13/17 2:00 pm (The above appointment is with [facility] for outpatient counseling services. You will also see Dr. Alexander on 12/26/2017 at 4:00pm for outpatient psychiatric assessment and medication management services.)
[2017-12-03] MEDS ORDERED: Aspirin 325 MG TABLET PO ONE (01:15)
[2017-12-03 03:31] LABS: Basophils # 0.1 K/mcL (0.0-0.2); Basophils % 1.2 %; Eosinophils # 0.6 K/mcL (0.0-0.6); Eosinophils % 10.7 %; Hematocrit 37.6 % (37.5-50.1); Hemoglobin 13.2 g/dL (12.9-16.9); Immature Granulocytes % 0.4 % (0-4); Lymphocytes # 1.7 K/mcL (0.6-4.6); Lymphocytes % 29.4 %; Mean Corpuscular HGB Conc 35.1 g/dL (31.6-35.5); Mean Corpuscular Hemoglobin 31.7 pg (28.0-33.3); Mean Corpuscular Volume 90.2 fL (83.0-100.0); Mean Platelet Volume 9.2 fL (9.4-12.4); Monocytes # 0.6 K/mcL (0.0-1.3); Neutrophils # 2.7 K/mcL (1.6-8.9); Platelet Count 222 K/mcL (140-400); Red Blood Count 4.17 M/mcL (4.19-5.50); Red Cell Distribution Width 12.9 % (11.5-14.5); Segmented Neutrophils % 48.3 %
[2017-12-03 03:53] LABS: BUN/Creatinine Ratio 13 (6-26); Blood Urea Nitrogen 9 mg/dL (6-20); Calcium 8.8 mg/dL (8.6-10.3); Carbon Dioxide 28 mEq/L (23-29); Chloride 109 mEq/L (98-107); Chol/HDL Ratio 3.3 (0-4.9); Cholesterol 153 mg/dL (< 200); Glucose 92 mg/dL (70-105); HDL Cholesterol 46 mg/dL (40-59); LDL Cholesterol,Calculated 92 mg/dL (0-99); Magnesium 2.1 mg/dL (1.6-2.6); Osmolality,Calculated 292 (280-300); Sodium 142 mEq/L (136-145); Triglycerides 76 mg/dL (< 150); Troponin I < 0.03 ng/mL (< 0.04); eGFR For African Americans > 60 (> 60); eGFR For Non-African Americans > 60 (> 60)
[2017-12-03] MEDS: ARIPiprazole 10 MG TABLET PO SCH (08:51)
[2017-12-03] MEDS: clonazePAM 1 MG TABLET PO SCH ×4 (08:51→21:27)
[2017-12-03] MEDS ORDERED: Venlafaxine XR (24 HR) 37.5 MG CAP.ER.24H PO SCH ×2 (09:00→12:10)
--- NOTE | 2017-12-03 12:26 | Psychiatry Progress Note ---
Date of Encounter: 12/03/17 Time of Encounter: 09:00 Subjective Interval history: Identifying Data: Patient with is a 52y/o male, , lives with family with a h/o depression and anxiety admitted to the unit for suicidal ideation in the setting of ongoing stressors. Intervlal Hx: Patient was seen by medicine consult last night following complaints of left sided chest pain radiating to the arm and jaw. EKG was done and there were no significant change from the previous on admission except slight ST depression. Chest pain resolved on its own and was diagnosed to be anxiety related. Patient is has been on Klonopin 1mg qid for months and may have developed tolerance to current dose causing recent worsening anxiety related chest pain. This was discussed with patient including the need beak the physical dependence by gradually switching to a longer acting benzodiazepam and evntaully tapering off. He verbalized adequate understanding. Patient is compliant with his medications and denied any side effect. He denied any problems with sleep and appetite. He continues to endorse depressive and anxiety symptoms but denied any suicidal thoughts. On review of symptoms, he denied any mood or psychotic symptoms including Ah/VH/SI/HI. Review of Systems Constitutional: Denies: fever, chills, weakness, weight change Eyes: Denies: eye pain, vision change Ears, Nose, Throat: Denies: ear pain, throat pain, dental pain, hearing loss, congestion Cardiovascular: Denies: chest pain, palpitations, dyspnea on exertion Respiratory: Denies: cough, dyspnea, wheezes Gastrointestinal: Denies: abdominal pain, nausea, vomiting, diarrhea, constipation Musculoskeletal: Denies: joint swelling, joint pain Neurological: Denies: headache, weakness, numbness, memory loss Psychiatric: Reports: depression, anxiety, anhedonia Results - Vital Signs Vital Signs: Temp Pulse Resp BP Pulse Ox 96.6 F L 52 16 119/73 98 12/02/17 20:18 12/03/17 08:26 12/03/17 08:26 12/03/17 08:26 11/30/17 14:54 - Labs Labs: Laboratory Results - last 24 hr 12/03/17 12/03/17 12/03/17 02:12 02:12 07:29 WBC 5.6 RBC 4.17 L Hgb 13.2 Hct 37.6 MCV 90.2 MCH 31.7 MCHC 35.1 RDW 12.9 Plt Count 222 MPV 9.2 L Immature Gran % 0.4 Seg Neutrophils % 48.3 Lymphocytes % 29.4 Monocytes % 10.0 Eosinophils % 10.7 Basophils % 1.2 Neutrophils # 2.7 Lymphocytes # 1.7 Monocytes # 0.6 Eosinophils # 0.6 Basophils # 0.1 Sodium 142 Potassium 4.0 Chloride 109 H Carbon Dioxide 28 BUN 9 Creatinine 0.69 L Est GFR ( Amer) > 60 Est GFR (Non-Af Amer) > 60 BUN/Creatinine Ratio 13 Glucose 92 Calculated Osmolality 292 Calcium 8.8 Magnesium 2.1 Troponin I < 0.03 < 0.03 Triglycerides 76 Cholesterol 153 LDL Cholesterol, Calc 92 VLDL Cholesterol, Calc 15 HDL Cholesterol 46 Cholesterol/HDL Ratio 3.3 Assessment and Plan (1) Suicidal ideation Current visit: Yes Status: Acute Risks, benefits, side effects, alternatives discussed w/pt: Yes Patient agreeable to treatment: Yes (2) Bipolar 1 disorder, depressed Current visit: Yes Status: Acute Risks, benefits, side effects, alternatives discussed w/pt: Yes Patient agreeable to treatment: Yes (3) Anxiety Current visit: Yes Status: Acute Risks, benefits, side effects, alternatives discussed w/pt: Yes Patient agreeable to treatment: Yes Consult Discharge Plan - Plan Referrals: [facility] [Outside] - 12/13/17 2:00 pm (The above appointment is with [facility] for outpatient counseling services. You will also see Dr. Alexander on 12/26/2017 at 4:00pm for outpatient psychiatric assessment and medication management services.) Psychiatry Exam - Constitutional Vitals: Temp Pulse Resp BP Pulse Ox 96.6 F L 52 16 119/73 98 12/02/17 20:18 12/03/17 08:26 12/03/17 08:26 12/03/17 08:26 11/30/17 14:54 General appearance: age & developmentally appropriate - Musculoskeletal Gait: normal Station: other Strength & Tone: normal for patient - Psychiatric Patient Orientation: Yes Person, Yes Time, Yes Place, Yes Circumstance Level of alertness: Alert Behavior: calm, cooperative Psychomotor activity: Normal Eye Contact: Maintains Eye Contact Mood Description: Depressed Affect description: congruent with mood, full range Speech Volume: Normal Speech pattern: normal rate, normal rhythm, normal tone, fluent, spontaneous Language & Vocabulary: consistent with education Thought Process: Linear, Goal Oriented Thought Content: No Suicidal ideation, No Homicidal ideation, No Overt delusions Perceptual Disturbances: No Auditory hallucinations, No Visual hallucinations Attention Span Ability: Capable of Focused Attention Memory Description: Grossly Intact Patient Reliability: Reliable Historian Fund of knowledge: Yes abstraction ability, Yes aware of current events Intelligence Estimate: Average Judgment: Limited Insight: Partial
[2017-12-03 12:44] LABS: Estimated Average Glucose 114 mg/dl; Hemoglobin A1C 5.6 %
[2017-12-03] MEDS: Acetaminophen 325 MG TABLET PO PRN (17:53)
[2017-12-03] MEDS: traZODone 50 MG TABLET PO PRN (21:27)
[2017-12-04] MEDS: ARIPiprazole 10 MG TABLET PO SCH (09:31)
[2017-12-04] MEDS: clonazePAM 1 MG TABLET PO SCH ×3 (11:17→21:18)
--- NOTE | 2017-12-04 14:34 | Electrocardiograph Report ---
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
--- NOTE | 2017-12-04 15:26 | Internal Med Progress Note ---
Date of Encounter: 12/04/17 Time of Encounter: 15:23 - Assessment and plan (1) Chest pain Current Visit: Yes Status: Acute Assessment and plan: Chest pain lasted about 5 minutes and resolved EKG is normal troponin is negative at this point will signed off please feel free to reconsult us if we can be of further assistance Qualifiers: Chest pain type: unspecified Qualified Code(s): R07.9 - Chest pain, unspecified (2) Suicidal ideation Current Visit: Yes Status: Acute Assessment and plan: per psych management (3) Anxiety Current Visit: Yes Status: Acute - Time Spent With Patient Total time spent is greater than 50% in coordination of care (as documented) at patient's floor/unit and/or counseling patient: - Subjective Interval history: Patient with history of depression, anxiety, patient was admitted to psych unit due to increased anxiety and suicidal ideation patient had chest pain yesterday lasted about 5 minutes and resolved was seen by hospitalist in consultation EKG was normal serial troponin was ordered today on reevaluation patient remained chest pain-free troponin all negative - Constitutional Vitals: Temp Pulse Resp BP Pulse Ox 98.2 F 44 16 124/71 98 12/04/17 10:58 12/04/17 10:58 12/04/17 10:58 12/04/17 10:58 11/30/17 14:54 - Eye Eye exam: Present: PERRL, conjuntiva pink, sclera anicteric Pupils: Present: PERRL - Neck Neck exam general surgery: Present: supple, trachea midline. Absent: lymphadenopathy - Respiratory Respiratory exam: Present: CTAB. Absent: accessory muscle use, rales, rhonchi, wheezes - Cardiovascular Cardiovascular exam: Present: RRR, +S1, +S2. Absent: diastolic murmur, gallop, rubs, systolic murmur - GI/Abdominal GI/Abdominal exam: Present: normal bowel sounds, soft, no peritoneal signs. Absent: distended, tenderness - Extremities Exam Extremities exam: Present: warm, radial pulses palpable and symmetrical. Absent : calf tenderness, cyanotic, pedal edema Internal Medicine: Result - Labs CBC & Chem 7: 12/03/17 02:12 12/03/17 02:12 - VTE Reasons for not Prescribing Prophylaxis: Medical contraindication Consult Discharge Plan - Plan Referrals: [facility] [Outside] - 12/13/17 2:00 pm (The above appointment is with [facility] for outpatient counseling services. You will also see Dr. Alexander on 12/26/2017 at 4:00pm for outpatient psychiatric assessment and medication management services.)
--- NOTE | 2017-12-04 15:41 | Psychiatry Progress Note ---
Date of Encounter: 12/04/17 Time of Encounter: 15:30 Subjective Interval history: The patient has had a history of major depression all his never been hospitalized. The patient has a history of generalized anxiety disorder. While he is been treated by his family doctor Dr. Clark. He is also seen Dr. Hilton in [facility]. Dr. Hilton is a psychiatrist who told him that he had major depression and an anxiety disorder. The patient did not want follow-up in that clinic and will follow-up at [place]. He will see Dr. Alexander. Nonetheless the patient's clonazepam was held this morning because of low pulse. The patient had a hospitalist consult in which no cardiac abnormality was noted nonetheless pulse and the 40s was such that clonazepam was held. The patient notes no dizziness unsteadiness or incoordination from the clonazepam. He is tolerated the period of time off Lexapro and is now on 75 mg of venlafaxine. I talked to him about the possibility of increasing the venlafaxine to 150 per day and reducing the clonazepam to 13 times a day. 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 Patient is willing to consider psychotherapy as part of his treatment regimen. Review of Systems Psychiatric: Reports: depression, anxiety, suicidal ideation, anhedonia Results - Vital Signs Vital Signs: Temp Pulse Resp BP Pulse Ox 98.2 F 44 16 124/71 98 12/04/17 10:58 12/04/17 10:58 12/04/17 10:58 12/04/17 10:58 11/30/17 14:54 Assessment and Plan (1) Suicidal ideation Current visit: Yes Status: Acute Plan: Continue hospitalization, Suicide Precautions per unit protocol Risks, benefits, side effects, alternatives discussed w/pt: Yes Patient agreeable to treatment: Yes (2) Bipolar 1 disorder, depressed Current visit: Yes Status: Acute Plan: Continue hospitalization, Close observation Risks, benefits, side effects, alternatives discussed w/pt: Yes Patient agreeable to treatment: Yes (3) Anxiety Current visit: Yes Status: Acute Plan: Continue hospitalization, Close observation, Suicide Precautions per unit protocol Risks, benefits, side effects, alternatives discussed w/pt: Yes Patient agreeable to treatment: Yes Consult Discharge Plan - Plan Referrals: [facility] [Outside] - 12/13/17 2:00 pm (The above appointment is with [facility] for outpatient counseling services. You will also see Dr. Alexander on 12/26/2017 at 4:00pm for outpatient psychiatric assessment and medication management services.) Psychiatry Exam - Constitutional Vitals: Temp Pulse Resp BP Pulse Ox 98.2 F 44 16 124/71 98 12/04/17 10:58 12/04/17 10:58 12/04/17 10:58 12/04/17 10:58 11/30/17 14:54 General appearance: age & developmentally appropriate, well-groomed, well- nourished - Musculoskeletal Gait: normal Station: relaxed Strength & Tone: normal for patient - Psychiatric Patient Orientation: Yes Person, Yes Time, Yes Place Level of alertness: Alert Behavior: calm, anxious Psychomotor activity: Normal Eye Contact: Maintains Eye Contact Mood Description: Depressed, Anxious Affect description: congruent with mood, full range Speech Volume: Normal Speech pattern: normal rate, normal rhythm, normal tone, fluent, spontaneous Language & Vocabulary: consistent with education Thought Process: Linear, Goal Oriented Thought Content: No Suicidal ideation, No Homicidal ideation, No Overt delusions Perceptual Disturbances: No Auditory hallucinations, No Visual hallucinations Attention Span Ability: Capable of Focused Attention Memory Description: Grossly Intact Patient Reliability: Reliable Historian Fund of knowledge: Yes abstraction ability, Yes aware of current events Intelligence Estimate: Average Judgment: Fair Insight: Partial
[2017-12-04] MEDS: Acetaminophen 325 MG TABLET PO PRN (17:18)
[2017-12-04] MEDS: traZODone 50 MG TABLET PO PRN (21:18)
[2017-12-05] MEDS: Acetaminophen 325 MG TABLET PO PRN (06:19)
[2017-12-05] MEDS: ARIPiprazole 10 MG TABLET PO SCH (08:29)
[2017-12-05] MEDS: clonazePAM 1 MG TABLET PO SCH (08:30)
[2017-12-05] MEDS ORDERED: Venlafaxine XR (24 HR) 150 MG CAP.ER.24H PO SCH (09:00)
[2017-12-05 09:18] VITALS: BP 109/76
--- NOTE | 2017-12-05 11:39 | Discharge Summary ---
Date of Encounter: 12/05/17 Time of Encounter: 10:30 Diagnosis - Discharge Diagnosis (1) Suicidal ideation Status: Resolved (2) Bipolar 1 disorder, depressed Status: Acute (3) Anxiety Status: Acute Medications - Discharge Medications Prescriptions: ARIPiprazole [Abilify] 10 mg PO DAILY 30 Days #30 tablet clonazePAM [Klonopin] 1 mg PO TID 30 Days #90 tablet Venlafaxine XR (24 HR) [Effexor Xr] 150 mg PO DAILY 30 Days #30 cap.er.24h Diclofenac Sodium [Voltaren] 50 mg PO BID 11/30/17 [History] Omeprazole [PriLOSEC] 20 mg PO DAILY 11/30/17 [History] ARIPiprazole [Abilify] 10 mg PO DAILY 30 Days #30 tablet 12/05/17 [Rx] Venlafaxine XR (24 HR) [Effexor Xr] 150 mg PO DAILY 30 Days #30 cap.er.24h 12/05 [Rx] clonazePAM [Klonopin] 1 mg PO TID 30 Days #90 tablet 12/05/17 [Rx] 3 Allergy/AdvReac Type Severity Reaction Status Date / Time ciprofloxacin [From Cipro] Allergy Rash Verified 03/19/15 20:50 Results Procedures and tests throughout hospitalization: Completed Lab Orders Category Date Time Status BMP [Basic Metabolic Panel] Stat Lab 12/03/17 02:12 Completed CBC [Complete Blood Count] [HEME] Stat Lab 12/01/17 14:26 Completed CMP [Comprehensive Metabolic Panel] Stat Lab 12/01/17 14:26 Completed Complete Blood Count [HEME] Stat Lab 12/03/17 02:12 Completed Folate Stat Lab 12/01/17 14:26 Completed Hgb A1C Stat Lab 12/03/17 02:12 Completed Lipid Panel Stat Lab 12/03/17 02:12 Completed Magnesium Stat Lab 12/01/17 14:26 Completed Magnesium Stat Lab 12/03/17 02:12 Completed Thyroid [place] Stat Lab 12/01/17 14:26 Completed Troponin I Q6H Lab 12/03/17 07:29 Completed Troponin I Q6H Lab 12/03/17 14:03 Completed Troponin I Stat Lab 12/03/17 02:12 Completed Vitamin B12 Stat Lab 12/01/17 14:26 Completed Provider Date of admission: 11/30/17 15:18 Primary care physician: PCP NONE Consults: 12/03/17 00:01 Consult to Hospitalist [CONS] Stat Consulting Provider: Hospitalist Katt Reason for Consult: Left sided chest pain with heart rate of 44/min Time Notified: 00:02 Call Completed: Yes Discharging clinician: Enzo [place] Psychiatry Exam - Constitutional Vitals: Temp Pulse Resp BP Pulse Ox 97.7 F 61 16 109/76 98 12/04/17 21:00 12/05/17 09:00 12/05/17 09:00 12/05/17 09:00 11/30/17 14:54 Hospital Course Hospital course: Mr. Patton is a 52 year old male During the patient's hospital stay. The patient was transitioned from Lexapro to Effexor. The Effexor was increased to a dose of 150 mg in order to help with generalized anxiety disorder like symptoms. The patient had a diagnosis of bipolar depression but did not evidence significant alexandra. Depression nonetheless improved during this period of time and suicidal ideation resolved. The patient had ahosptalist/cardiology consult. This was due to EKG abnormalities but he was seen initially in an follow-up and found to have no evidence of cardiovascular disease. Nonetheless the patient had episodes of low pulse and clonazepam was helpful. Therefore the dose was reduced from a total of 4 mg per day to 3 mg per day patient tolerated the reduction without significant rebound anxiety. The patient plans to follow-up at [place] with Dr. Alexander. Further diagnostic clarification may be helpful as the patient appears to have long- standing episodes of depression and generalized anxiety disorder. In the intervening period of time he had been treated by his family family physician Dr. López. Time spent discussing smoking cessation with patient: 3 to 10 minutes Does patient wish to continue nicotine replacement upon disc: No - Time Spent with Patient Total time spent providing and/or coordinating discharge services: Less than 30 minutes Assessment and Plan - Patient/Caregiver Discharge Instructions Diet: regular diet - Follow up Plan Follow up with: [facility] [Outside] - 12/13/17 2:00 pm (The above appointment is with [facility] for outpatient counseling services. You will also see Dr. Alexander on 12/26/2017 at 4:00pm for outpatient psychiatric assessment and medication management services.) Overall status at discharge: Stable Disposition: Home, Self-Care Quality - Multiple Antipsychotics Patient discharged on 2 or more antipsychotic medications: No Procedures - Procedures Procedures: Medication Management, Crisis Stabilization, Supportive Therapy, Group Therapy, Psychoeducational Therapy
== END 2017-12-05 13:27 | disposition home or self-care (01) | DRG 753 ==
LOC: EMEROO 11:07 → 1ANU 15:18 → SUATTDRO 15:18 → 1ANU 15:28
PROVIDERS: ADMIT General Practice; ATTEND Psychiatry & Neurology Forensic Psychiatry

== ENCOUNTER 2020-01-08 16:10 | Inpatient (IN) ==
[2020-01-08 17:14] LABS: Bilirubin,Urine Negative (Negative); Blood,Urine Negative (Negative); Clarity,Urine Clear (Clear); Color,Urine Light-Yellow (Yellow); Glucose,Urine (UA) Normal (Normal); Ketones,Urine Negative (Negative); Leukocyte Esterase,Urine Negative (Negative); Nitrite,Urine Negative (Negative); Protein,Urine Negative (Neg-Trace); Specific Gravity,Urine 1.015 (1.010-1.025)
[2020-01-08 17:53] LABS: Basophils # 0.1 K/mcL (0.0-0.2); Basophils % 0.9 %; Eosinophils # 0.2 K/mcL (0.0-0.6); Hemoglobin 15.2 g/dL (12.9-16.9); Immature Granulocytes % 0.2 % (0-4); Lymphocytes # 1.6 K/mcL (0.6-4.6); Lymphocytes % 24.1 %; Mean Corpuscular HGB Conc 33.8 g/dL (31.6-35.5); Mean Corpuscular Hemoglobin 30.3 pg (28.0-33.3); Mean Corpuscular Volume 89.6 fL (83.0-100.0); Monocytes # 0.6 K/mcL (0.0-1.3); Platelet Count 242 K/mcL (140-400); Red Blood Count 5.02 M/mcL (4.19-5.50); Red Cell Distribution Width 12.6 % (11.5-14.5); Segmented Neutrophils % 61.8 %; White Blood Count 6.4 K/mcL (4.3-11.1)
[2020-01-08 18:10] LABS: Alanine Aminotransferase 7 Units/L (7-52); Albumin/Globulin Ratio 1.7 (1.1-2.2); Alkaline Phosphatase 56 Units/L (34-104); Aspartate Amino Transferase 12 Units/L (13-39); BUN/Creatinine Ratio 13 (6-26); Bilirubin,Total 0.3 mg/dL (0.3-1.0); Blood Urea Nitrogen 11 mg/dL (6-20); Calcium 8.8 mg/dL (8.6-10.3); Carbon Dioxide 24 mEq/L (23-29); Chloride 107 mEq/L (98-107); Globulin 2.4 g/dL (2.4-3.5); Glucose 92 mg/dL (70-105); Osmolality,Calculated 283 (280-300); Potassium 3.9 mEq/L (3.5-5.1); Sodium 137 mEq/L (136-145); Total Protein 6.4 g/dL (6.4-8.9); Troponin I < 0.03 ng/mL (< 0.04); eGFR For African Americans > 60 (> 60); eGFR For Non-African Americans > 60 (> 60)
[2020-01-09] MEDS ORDERED: Naloxone 0.4 MG/ML INJ IVP PRN (02:45)
[2020-01-09] MEDS ORDERED: 0.9 % Sodium Chloride 1,000 ML IVC ONE (03:59)
[2020-01-09 06:14] LABS: Hematocrit 44.7 % (37.5-50.1); Hemoglobin 14.7 g/dL (12.9-16.9); Mean Corpuscular HGB Conc 32.9 g/dL (31.6-35.5); Mean Corpuscular Hemoglobin 30.4 pg (28.0-33.3); Mean Corpuscular Volume 92.5 fL (83.0-100.0); Mean Platelet Volume 8.8 fL (9.4-12.4); Platelet Count 218 K/mcL (140-400); Red Blood Count 4.83 M/mcL (4.19-5.50); Red Cell Distribution Width 12.8 % (11.5-14.5); White Blood Count 5.5 K/mcL (4.3-11.1)
[2020-01-09 06:56] LABS: BUN/Creatinine Ratio 11 (6-26); Blood Urea Nitrogen 11 mg/dL (6-20); Calcium 8.7 mg/dL (8.6-10.3); Carbon Dioxide 27 mEq/L (23-29); Chloride 108 mEq/L (98-107); Glucose 96 mg/dL (70-105); Magnesium 2.3 mg/dL (1.6-2.6); Osmolality,Calculated 289 (280-300); Phosphorous 4.3 mg/dL (2.7-4.5); Potassium 4.2 mEq/L (3.5-5.1); Sodium 140 mEq/L (136-145); Troponin I < 0.03 ng/mL (< 0.04); eGFR For African Americans > 60 (> 60); eGFR For Non-African Americans > 60 (> 60)
[2020-01-09] MEDS: Loratadine 10 MG TABLET PO SCH (10:48)
[2020-01-09] MEDS: clonazePAM 1 MG TABLET PO SCH ×3 (10:49→21:24)
[2020-01-10] MEDS: clonazePAM 1 MG TABLET PO SCH ×2 (08:04→14:18)
[2020-01-10] MEDS: Loratadine 10 MG TABLET PO SCH (08:04)
[2020-01-10] MEDS ORDERED: Isovue-370 500 ML BOTTLE IVP ONE (10:21)
[2020-01-10 15:35] VITALS: BP 120/78
== END 2020-01-10 19:25 | disposition short-term general hospital (02) | DRG 204 ==
LOC: 3BNU 16:10 → EMEROOARM 16:10 → 3BNU 21:56
PROVIDERS: ADMIT Internal Medicine; ATTEND Internal Medicine

== ENCOUNTER 2020-02-08 18:49 | Observation (INO) ==
[2020-02-08] MEDS ORDERED: Isovue-370 500 ML BOTTLE IVP ONE ×2 (19:08→20:27)
[2020-02-08 19:31] LABS: Basophils # 0.1 K/mcL (0.0-0.2); Basophils % 1.2 %; Eosinophils # 0.2 K/mcL (0.0-0.6); Eosinophils % 2.8 %; Hematocrit 41.6 % (37.5-50.1); Lymphocytes # 1.7 K/mcL (0.6-4.6); Lymphocytes % 29.5 %; Mean Corpuscular HGB Conc 33.7 g/dL (31.6-35.5); Mean Corpuscular Hemoglobin 29.9 pg (28.0-33.3); Mean Corpuscular Volume 88.7 fL (83.0-100.0); Mean Platelet Volume 8.5 fL (9.4-12.4); Monocytes # 0.6 K/mcL (0.0-1.3); Monocytes % 10.3 %; Neutrophils # 3.2 K/mcL (1.6-8.9); Platelet Count 206 K/mcL (140-400); Red Blood Count 4.69 M/mcL (4.19-5.50); Red Cell Distribution Width 12.2 % (11.5-14.5); Segmented Neutrophils % 56.2 %; White Blood Count 5.6 K/mcL (4.3-11.1)
[2020-02-08 19:53] LABS: BUN/Creatinine Ratio 13 (6-26); Blood Urea Nitrogen 10 mg/dL (6-20); Calcium 8.6 mg/dL (8.6-10.3); Carbon Dioxide 20 mEq/L (23-29); Chloride 107 mEq/L (98-107); Glucose 121 mg/dL (70-105); Osmolality,Calculated 282 (280-300); Potassium 3.7 mEq/L (3.5-5.1); Sodium 136 mEq/L (136-145); Troponin I < 0.03 ng/mL (< 0.04); eGFR For African Americans > 60 (> 60); eGFR For Non-African Americans > 60 (> 60)
[2020-02-09 00:05] LABS: Adenovirus Not Detected (Not Detect); Bordetella Pertussis Not Detected (Not Detect); Chlamydophila pneumoniae Not Detected (Not Detect); Coronavirus 229E Not Detected (Not Detect); Coronavirus HKU1 Not Detected (Not Detect); Coronavirus NL63 Not Detected (Not Detect); Coronavirus OC43 Not Detected (Not Detect); Human Metapneumovirus Not Detected (Not Detect); Human Rhinovirus/Enterovirus Not Detected (Not Detect); Influenza A Subtype 2009 H1 Not Detected (Not Detect); Influenza B Not Detected (Not Detect); Mycoplasma pneumoniae Not Detected (Not Detect); Parainfluenza Virus 1 Not Detected (Not Detect); Parainfluenza Virus 2 Not Detected (Not Detect); Parainfluenza Virus 3 Not Detected (Not Detect); Parainfluenza Virus 4 Not Detected (Not Detect); Respiratory Syncytial Virus Not Detected (Not Detect)
[2020-02-09 00:06] LABS: SARS-CoV-2 Not Detected (Not Detect)
[2020-02-09] MEDS ORDERED: Naloxone 0.4 MG/ML INJ IVP PRN (00:58)
[2020-02-09] MEDS ORDERED: Azithromycin 500 MG in D5% in Water 250 ML IVPB SCH (08:00)
[2020-02-09 08:03] LABS: Hemoglobin 14.3 g/dL (12.9-16.9); Mean Corpuscular HGB Conc 33.3 g/dL (31.6-35.5); Mean Corpuscular Hemoglobin 30.1 pg (28.0-33.3); Mean Corpuscular Volume 90.5 fL (83.0-100.0); Mean Platelet Volume 8.5 fL (9.4-12.4); Platelet Count 196 K/mcL (140-400); Red Blood Count 4.75 M/mcL (4.19-5.50); Red Cell Distribution Width 12.3 % (11.5-14.5); White Blood Count 5.2 K/mcL (4.3-11.1)
[2020-02-09 08:26] LABS: BUN/Creatinine Ratio 9 (6-26); Blood Urea Nitrogen 8 mg/dL (6-20); Calcium 8.7 mg/dL (8.6-10.3); Carbon Dioxide 28 mEq/L (23-29); Chloride 107 mEq/L (98-107); Glucose 92 mg/dL (70-105); Osmolality,Calculated 284 (280-300); Potassium 4.2 mEq/L (3.5-5.1); Sodium 138 mEq/L (136-145); eGFR For African Americans > 60 (> 60); eGFR For Non-African Americans > 60 (> 60)
[2020-02-09] MEDS ORDERED: cefTRIAXone 1,000 MG in Water for inj. (sterile) 10 ML IVP SCH (09:00)
[2020-02-09] MEDS ORDERED: Ringers Solution, Lactated 1,000 ML IVC SCH (09:15)
[2020-02-09] MEDS ORDERED: Ondansetron 4 MG/2 ML VIAL ONE (11:50)
[2020-02-09] MEDS ORDERED: *HR* Propofol 200 MG/20 ML VIAL IVP ONE (11:50)
[2020-02-09] MEDS ORDERED: *HR* Succinylcholine 200 MG/10 ML VIAL IVP ONE (11:50)
[2020-02-09] MEDS ORDERED: Lidocaine -MPF 2% 2 ML VIAL ONE (11:50)
[2020-02-09] MEDS: clonazePAM 1 MG TABLET PO SCH ×2 (13:42→21:15)
[2020-02-10] MEDS ORDERED: Ondansetron 4 MG/2 ML VIAL IVP ONE (02:07)
[2020-02-10] MEDS ORDERED: Simethicone 80 MG TAB.CHEW PO ONE (02:10)
[2020-02-10] MEDS ORDERED: Loratadine 10 MG TABLET PO SCH (09:00)
[2020-02-10] MEDS ORDERED: E-Z-HD (BARIUM SULF) SUSPENSION PO ONE (10:28)
[2020-02-10] MEDS ORDERED: E-Z-PAQUE (BARIUM SULF) SUSP 1 BOTTLE PO ONE (10:28)
[2020-02-10] MEDS: clonazePAM 1 MG TABLET PO SCH ×2 (10:43→15:26)
[2020-02-10 15:32] VITALS: BP 106/57
== END 2020-02-10 17:45 | disposition home or self-care (01) ==
LOC: EMEROOARM 18:49 → 3BNU 18:49 → SUATTDRO 02-09 00:13 → 3ANU 02-09 00:22
PROVIDERS: ADMIT Family Medicine; ATTEND Internal Medicine

== ENCOUNTER 2020-04-16 20:14 | Observation (INO) ==
[2020-04-16] MEDS ORDERED: Ondansetron 4 MG/2 ML VIAL IVP ONE (20:24)
[2020-04-16] MEDS ORDERED: 0.9 % Sodium Chloride 1,000 ML IVC ONE (20:24)
[2020-04-16 20:42] LABS: Basophils # 0.1 K/mcL (0.0-0.2); Basophils % 0.9 %; Eosinophils # 0.1 K/mcL (0.0-0.6); Eosinophils % 2.4 %; Hematocrit 44.3 % (37.5-50.1); Hemoglobin 14.7 g/dL (12.9-16.9); Immature Granulocytes % 0.2 % (0-4); Lymphocytes # 1.6 K/mcL (0.6-4.6); Lymphocytes % 28.6 %; Mean Corpuscular HGB Conc 33.2 g/dL (31.6-35.5); Mean Corpuscular Hemoglobin 30.4 pg (28.0-33.3); Mean Corpuscular Volume 91.7 fL (83.0-100.0); Monocytes # 0.5 K/mcL (0.0-1.3); Monocytes % 9.1 %; Neutrophils # 3.4 K/mcL (1.6-8.9); Platelet Count 222 K/mcL (140-400); Red Blood Count 4.83 M/mcL (4.19-5.50); Red Cell Distribution Width 12.6 % (11.5-14.5); Segmented Neutrophils % 58.8 %; White Blood Count 5.7 K/mcL (4.3-11.1)
[2020-04-16 20:48] LABS: Bacteria,Urine Few per hpf (None-Few); Bilirubin,Urine Negative (Negative); Blood,Urine Trace (Negative); Clarity,Urine Clear (Clear); Color,Urine Light-Yellow (Yellow); Glucose,Urine (UA) Normal (Normal); Ketones,Urine Negative (Negative); Leukocyte Esterase,Urine Negative (Negative); Mucus,Urine Few per lpf (None-Few); Nitrite,Urine Negative (Negative); PH,Urine 6.5 pH Units (5.0-8.0); Protein,Urine Negative (Neg-Trace); Specific Gravity,Urine 1.011 (1.010-1.025); Urobilinogen,Urine Normal (Normal); WBC,Urine 0-3 per hpf (0-3)
[2020-04-16 21:01] LABS: Alanine Aminotransferase 7 Units/L (7-52); Albumin 4.1 g/dL (3.5-5.7); Albumin/Globulin Ratio 1.9 (1.1-2.2); Alkaline Phosphatase 49 Units/L (34-104); Aspartate Amino Transferase 12 Units/L (13-39); BUN/Creatinine Ratio 12 (6-26); Bilirubin,Direct 0.1 mg/dL (0.0-0.2); Bilirubin,Indirect 0.3 mg/dL (0.0-1.0); Bilirubin,Total 0.4 mg/dL (0.3-1.0); Blood Urea Nitrogen 9 mg/dL (6-20); Calcium 8.9 mg/dL (8.6-10.3); Carbon Dioxide 25 mEq/L (23-29); Chloride 106 mEq/L (98-107); Globulin 2.2 g/dL (2.4-3.5); Glucose 155 mg/dL (70-105); Lipase 27 Units/L (11-82); Osmolality,Calculated 286 (280-300); Potassium 3.6 mEq/L (3.5-5.1); Sodium 137 mEq/L (136-145); Total Protein 6.3 g/dL (6.4-8.9); eGFR For African Americans > 60 (> 60); eGFR For Non-African Americans > 60 (> 60)
[2020-04-16] MEDS ORDERED: Isovue-370 500 ML BOTTLE IVP ONE (22:27)
[2020-04-17] MEDS ORDERED: Isovue-370 500 ML BOTTLE IVP ONE (00:19)
[2020-04-17] MEDS ORDERED: Naloxone 0.4 MG/ML INJ IVP PRN (02:06)
[2020-04-17] MEDS ORDERED: Acetaminophen 325 MG TABLET PO PRN (04:30)
[2020-04-17] MEDS ORDERED: hydrOXYzine pamoate 25 MG CAPSULE PO PRN (04:45)
[2020-04-17] MEDS: Sennosides/Docusate Sodium TABLET PO STA ×2 (05:56→09:18)
[2020-04-17] MEDS ORDERED: Aspirin 325 MG TABLET PO ONE (05:59)
[2020-04-17] MEDS ORDERED: *HR* Heparin 5,000 UNIT/ML VIAL SQ SCH (07:00)
[2020-04-17] MEDS ORDERED: Aspirin Enteric Coated 81 MG Tablet PO SCH (09:00)
[2020-04-17] MEDS ORDERED: Sennosides/Docusate Sodium TABLET PO SCH (09:00)
[2020-04-17] MEDS ORDERED: Loratadine 10 MG TABLET PO SCH (09:00)
[2020-04-17] MEDS ORDERED: BuPROPion SR (12 HR) 100 MG TABLET PO SCH (09:00)
[2020-04-17] MEDS: clonazePAM 1 MG TABLET PO SCH ×2 (09:18→14:23)
[2020-04-17] MEDS ORDERED: FLU Vac QV 20-21 (6Month+)/PF 0.5 ML SYRINGE IM ONE (11:45)
[2020-04-17 15:27] VITALS: BP 117/63
[2020-04-18] MEDS ORDERED: Aspirin Enteric Coated 81 MG Tablet PO SCH (09:00)
== END 2020-04-17 15:33 | disposition home or self-care (01) ==
LOC: 3ANU 20:14 → EMEROOARM 20:14 → 3ANU 04-17 02:32
PROVIDERS: ADMIT Internal Medicine; ATTEND Internal Medicine